=== PATIENT | female | born 1965 | race Caucasian/White ===

== ENCOUNTER → 2017-03-29 | Outpatient (CLI) | payer OTHER ==
[2017-03-29 08:44] LABS: AUTOMATED NEUTROPHIL # 3.7 TH/MM3 (1.8-7.7); BASOPHIL % 0.5 % (0.0-2.0); EOSINOPHIL # 0.3 TH/MM3 (0-0.4); EOSINOPHIL % 4.6 % (0.0-4.0); HEMATOCRIT 42.2 % (35.0-46.0); HEMO FLAGS DIFF FINAL; LYMPH % 28.4 % (9.0-44.0); LYMPHOCYTE # 1.8 TH/MM3 (1.0-4.8); MEAN CELL VOLUME 88.3 FL (80.0-100.0); MEAN CORPUSCULAR HEMOGLOBIN 29.7 PG (27.0-34.0); MEAN CORPUSCULAR HGB CONC 33.7 % (32.0-36.0); MONO % 8.6 % (0.0-8.0); NEUT % 57.9 % (16.0-70.0); PLATELET COUNT 283 TH/MM3 (150-450); RED BLOOD COUNT 4.78 MIL/MM3 (4.00-5.30); RED CELL DISTRIBUTION WIDTH 13.3 % (11.6-17.2); WHITE BLOOD COUNT 6.4 TH/MM3 (4.0-11.0)
[2017-03-29 09:07] LABS: ALT (GPT) 16 U/L (10-53); AST (GOT) 11 U/L (15-37); BICARBONATE 29.7 MEQ/L (21.0-32.0); BLOOD UREA NITROGEN 21 MG/DL (7-18); GLOMERULAR FILTRATION RATE 106 ML/MIN (>89); GLUCOSE,FASTING 109 MG/DL (74-99)
[2017-03-29 09:08] LABS: ANION GAP 5 MEQ/L (5-15); CHLORIDE 103 MEQ/L (98-107); SODIUM (NA) 138 MEQ/L (136-145)
[2017-03-29 09:32] LABS: ALKALINE PHOSPHATASE 67 U/L (45-117); LDL CHOLESTEROL 160 MG/DL (0-99); TOTAL BILIRUBIN ADULT 0.4 MG/DL (0.2-1.0)
[2017-03-29 10:19] LABS: RHEUMATOID FACTOR TRIGGER LESS THAN 10.0 IU/ML (0.0-14.9)
[2017-03-29 10:35] LABS: HEMOGLOBIN A1a 0.9 %; HEMOGLOBIN A1b 1.8 %; HEMOGLOBIN Ao 84.9 %; HEMOGLOBIN LA1C 2.2 %
[2017-03-29 10:53] LABS: WESTERGREN SEDIMENTATION RATE 10 mm/hr (0-30)
[2017-03-30 11:27] LABS: ANA SCREEN NEG (NEG)
== END ==
LOC: CLAB 07:59
PROVIDERS: ATTEND Neuromusculoskeletal Medicine & OMM
DX: M79.1 Myalgia (principal); Z11.59 Encounter for screening for other viral diseases; Z13.220 Encounter for screening for lipoid disorders; Z13.0 Encounter for screening for diseases of the blood and blood-forming organs and certain disorders involving the immune mechanism; Z13.1 Encounter for screening for diabetes mellitus
CPT/HCPCS: 36415; 80053; 80061; 82607; 83036; 85025; 85652; 86038; 86140; 86430; 86803

== ENCOUNTER → 2017-05-30 | Outpatient (CLI) | payer OTHER ==
[2017-05-30 16:07] LABS: AUTOMATED NEUTROPHIL # 6.2 TH/MM3 (1.8-7.7); BASOPHIL % 0.4 % (0.0-2.0); EOSINOPHIL # 0.3 TH/MM3 (0-0.4); HEMATOCRIT 41.5 % (35.0-46.0); HEMO FLAGS DIFF FINAL; LYMPH % 22.7 % (9.0-44.0); LYMPHOCYTE # 2.1 TH/MM3 (1.0-4.8); MEAN CELL VOLUME 88.8 FL (80.0-100.0); MEAN CORPUSCULAR HEMOGLOBIN 30.3 PG (27.0-34.0); MEAN CORPUSCULAR HGB CONC 34.2 % (32.0-36.0); MONO % 6.2 % (0.0-8.0); NEUT % 67.7 % (16.0-70.0); PLATELET COUNT 320 TH/MM3 (150-450); RED BLOOD COUNT 4.67 MIL/MM3 (4.00-5.30); RED CELL DISTRIBUTION WIDTH 13.7 % (11.6-17.2); WHITE BLOOD COUNT 9.1 TH/MM3 (4.0-11.0)
[2017-05-30 16:30] LABS: ALT (GPT) 19 U/L (10-53); ANION GAP 8 MEQ/L (5-15); AST (GOT) 13 U/L (15-37); BICARBONATE 26.2 MEQ/L (21.0-32.0); BLOOD UREA NITROGEN 14 MG/DL (7-18); CHLORIDE 103 MEQ/L (98-107); GLOMERULAR FILTRATION RATE 82 ML/MIN (>89); GLUCOSE,FASTING 111 MG/DL (74-99); POTASSIUM 3.2 MEQ/L (3.5-5.1); RHEUMATOID FACTOR TRIGGER LESS THAN 10.0 IU/ML (0.0-14.9); SODIUM (NA) 137 MEQ/L (136-145)
[2017-05-30 16:33] LABS: ALKALINE PHOSPHATASE 66 U/L (45-117); TOTAL BILIRUBIN ADULT 0.4 MG/DL (0.2-1.0)
[2017-05-30 16:35] LABS: WESTERGREN SEDIMENTATION RATE 8 mm/hr (0-30)
[2017-05-31 07:26] LABS: BACTERIA, URINE RARE /hpf; BLOOD, URINE NEG (NEG); GLUCOSE,URINE NEG (NEG); KETONE, URINE NEG (NEG); MUCUS URINE FEW /lpf (OCC); NITRITE,URINE NEG (NEG); SQUAMOUS EPITHELIAL CELL URINE 3 /hpf (0-5); URINE COLOR YELLOW (YELLW/STRAW)
[2017-05-31 10:25] LABS: HEPATITIS B SURFACE ANTIBODY 0 mIU/mL
[2017-06-01 17:38] LABS: ANA SCREEN NEG (NEG)
== END ==
LOC: CLAB 15:14
DX: M19.90 Unspecified osteoarthritis, unspecified site (principal)
CPT/HCPCS: 36415; 80053; 81001; 85025; 85652; 86038; 86140; 86200; 86317; 86430; 86803; 87340

== ENCOUNTER → 2017-09-06 | Outpatient (CLI) | payer OTHER | LOC: CLAB 09:26 | DX: I10 Essential (primary) hypertension (principal) | CPT/HCPCS: 36415; 84443 ==

== ENCOUNTER 2018-06-10 07:16 | Observation (INO) ==
[2018-06-10] MEDS ORDERED: Sodium Chlor 0.9% Inj 500 ML IV.CONT ONE (08:30)
[2018-06-10] MEDS ORDERED: Chlorhexidine Gluconate 2% 1 Pack (2 Cloths) TOPICAL ONE (08:30)
[2018-06-10] MEDS ORDERED: Metoprolol Tartrate 25 MG Tablet PO ONE (08:30)
[2018-06-10] MEDS ORDERED: Heparin - SQ 10,000 UNITS/ML Vial SQ SCH (08:30)
[2018-06-10] MEDS ORDERED: Sugammadex Inj 200 MG/2 ML Vial IV.PUSH ONE (08:46)
[2018-06-10] MEDS ORDERED: Lidocaine PF 1% Inj 5 ML Syringe OTHER ONE (09:50)
[2018-06-10] MEDS ORDERED: Ketorolac Inj 30 MG/ML (IVP) Vial IV.PUSH ONE (09:50)
[2018-06-10] MEDS ORDERED: hydrALAZINE HCl Inj 20 MG/ML Vial IV.PUSH ONE (09:50)
[2018-06-10] MEDS ORDERED: Glycopyrrolate Inj 1 MG/5 ML Syringe IV.PUSH ONE (09:50)
[2018-06-10] MEDS ORDERED: Esmolol Bolus Inj 100 MG/10 ML Vial IV.PUSH ONE (09:50)
[2018-06-10] MEDS ORDERED: Neostigmine Inj 5 MG/5 ML Syringe IV.PUSH ONE (09:50)
[2018-06-10] MEDS ORDERED: Normosol-R pH 7.4 Inj 1,000 ML IV.CONT ONE (09:50)
[2018-06-10] MEDS ORDERED: Lidocaine 1%/Epinephrine 1:100,000 Inj 50 ML Vial INFILTRATN ONE ×6 (10:14→14:00)
[2018-06-10] MEDS ORDERED: LORazepam 0.5 MG Tablet PO PRN (12:52)
[2018-06-10] MEDS ORDERED: fentaNYL Citrate Inj 100 MCG/2 ML Ampul ONE (12:55)
[2018-06-10] MEDS ORDERED: *Meperidine Inj 25 MG/ML Vial PERIprocedural Use ONLY ONE (12:58)
[2018-06-10] MEDS ORDERED: KCL 20 mEq/D5W/NaCl 0.45% Inj 1,000 ML ONE (13:11)
[2018-06-10] MEDS: KCL 20 mEq/D5W/NaCl 0.45% Inj 1,000 ML IV.CONT SCH ×2 (13:44→23:35)
[2018-06-10] MEDS ORDERED: *morphine SULFATE 4 MG/ML PERIprocedure ONLY ONE ×3 (14:21→17:26)
[2018-06-10] MEDS: Ketorolac Inj 30 MG/ML (IVP) Vial IV.PUSH SCH (18:00)
[2018-06-10] MEDS ORDERED: Ketorolac Inj 30 MG/ML (IVP) Vial IV.PUSH SCH (18:00)
[2018-06-10] MEDS: Metoprolol Tartrate 50 MG Tablet PO SCH (20:16)
[2018-06-10] MEDS: Gabapentin 300 MG Capsule PO SCH (20:22)
[2018-06-10 21:27] VITALS: O2SAT 97
[2018-06-11] MEDS: Ketorolac Inj 30 MG/ML (IVP) Vial IV.PUSH SCH ×2 (00:46→05:52)
[2018-06-11 06:09] LABS: Anion Gap 9 meq/L (5-15); Blood Urea Nitrogen 11 mg/dL (7-18); Carbon Dioxide 22.6 meq/L (21.0-32.0); Chloride 107 meq/L (98-107); Glomerular Filtration Rate Greater Than 89 mL/min (>89); Glucose,Random 109 mg/dL (74-106); Potassium 3.4 meq/L (3.5-5.1); Sodium 139 meq/L (136-145)
[2018-06-11 06:46] LABS: Baso % (Auto) 0.3 % (0.0-2.0); Eos % (Auto) 0.2 % (0.0-4.0); Hematocrit 38.3 % (35.0-46.0); Hemoglobin 12.5 gm/dL (11.6-15.3); Lymph # (Auto) 1.6 th/mm3 (1.0-4.8); Lymph % (Auto) 13.9 % (9.0-44.0); Mean Corpuscular HGB Conc 32.7 % (32.0-36.0); Mean Corpuscular Hemoglobin 29.7 pg (27.0-34.0); Mean Corpuscular Volume 90.6 fL (80.0-100.0); Mean Platelet Volume 7.9 fL (7.0-11.0); Mono # (Auto) 1.1 th/mm3 (0.0-0.9); Mono % (Auto) 9.3 % (0.0-8.0); Neut # (Auto) 8.9 th/mm3 (1.8-7.7); Neut % (Auto) 76.3 % (16.0-70.0); Platelet Count 267 th/mm3 (150-450); Red Blood Count 4.23 mil/mm3 (4.00-5.30); Red Cell Distribution Width 13.7 % (11.6-17.2); White Blood Count 11.6 th/mm3 (4.0-11.0)
[2018-06-11] MEDS: Gabapentin 300 MG Capsule PO SCH (08:15)
[2018-06-11] MEDS: Metoprolol Tartrate 50 MG Tablet PO SCH (08:17)
[2018-06-11 08:22] VITALS: BP 116/65; PULSE 82; RESP 20; TEMP 98.3
[2018-06-11] MEDS: KCL 20 mEq/D5W/NaCl 0.45% Inj 1,000 ML IV.CONT SCH (08:36)
[2018-06-11] MEDS ORDERED: Escitalopram 10 MG Tablet PO SCH (09:00)
--- NOTE | 2018-06-11 10:37 | MP ---
cc: Vidhya Boswell MD, Savitha MD DATE OF OPERATION: 06/10/2018 DATE OF PROCEDURE: 06/10/2015. PREOPERATIVE DIAGNOSIS: Left adnexal mass. POSTOPERATIVE DIAGNOSIS: Retroperitoneal para sigmoid colonic mass. PROCEDURE PERFORMED: Robotic-assisted laparoscopic hysterectomy, bilateral salpingo-oophorectomy. 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 ANESTHESIA: General endotracheal anesthesia. ESTIMATED BLOOD LOSS: 75 mL URINE OUTPUT: 150 mL IV FLUIDS: 1100 mL INTRAOPERATIVE CONSULT: Dr. Fernie Smith, General Surgery. HISTORY AND INDICATIONS: A 53-year-old female undergoing evaluation for back pain, which showed some degenerative changes, some narrowed disk space disease, but also showed a 4 cm mass thought to be in the left adnexa, possibly left broad ligament. It was solid in appearance. She was counseled regarding options. She was in favor of definitive surgical evaluation. She was seen in the preoperative holding area where findings and plan of care are again discussed. Questions were asked and answered. She expressed good understanding. FINDINGS: Upon entry into the peritoneal cavity, in the resting position the left ovary was immediately adjacent to a mass that was not of ovarian origin. When the ovaries and uterus were elevated, it became clear that the uterus, tubes, and ovaries grossly appeared normal. What was seen; however, was a smooth walled solid fixed mass arising from the retroperitoneum in the left pelvis and arising from the pelvis on the left side in the presacral region and adjacent to the sigmoid colon. It was uncertain if the mass was arising from the colon or involving the colon, but seemed to be at least partially involving the mesentery and was immediately adjacent to the colon. Intraoperative consult with Dr. Fernie Smith to review these findings and we agreed that further evaluation of this mass from a diagnostic standpoint and counseling and treatment planning standpoint were necessary such that no surgical intervention would be undertaken today regarding this mass, but recommendations for colonoscopy, CAT scan and consultation with colorectal surgery. The remainder of the anatomy appeared normal. There were no peritoneal implants. There were no appreciably enlarged pelvic or periaortic lymph nodes. The uterus once removed was opened and grossly appeared normal. The adnexa grossly appeared normal. DESCRIPTION OF PROCEDURE: She was taken to the operating room and placed in dorsal lithotomy position, after general endotracheal anesthesia was administered. A timeout was undertaken. She was identified by site recognition and hospital ID bracelet and the proposed procedure was reviewed and confirmed. She was carefully positioned in padded Robert stirrups. Her arms were padded and secured to the sides. She was further secured to the operating table with egg crate padding and tape in a cross chest over the shoulder fashion. All sites noted to be properly aligned with no malalignment or pressure points. She was prepped and draped below the waist, placed in lithotomy position. The cervix grasped. Uterine cavity sounded. Cervix dilated. Standard VCare manipulator inserted and secured in usual fashion. Stein catheter placed in the bladder. She was returned to the low lithotomy position. Change of sterile gloves was undertaken. We completed draping in anticipation of laparoscopy and confirmed an orogastric tube was in the stomach on suction. With manual elevation of the abdominal wall a 5 mm cannula introduced into the left upper quadrant in an atraumatic fashion; carbon dioxide gas was insufflated. An 8 mm cannula placed in the right upper quadrant. She was placed in Trendelenburg and the anatomy was surveyed with findings as described above. A 12 mm cannula placed in the midline above the umbilicus and an 8 mm cannula placed in the left abdomen. The original 5 mm cannula exchanged for an [address] Fernie Smith was consulted intraoperative, who reviewed the findings on laparoscopic; showed him the findings on the anatomy. We discussed recommendations as outlined above. In keeping with her wishes to have a complete hysterectomy to remove both tubes and ovaries irrespective of the pathology and to prevent future problems, we moved forward with those objectives, realizing that the pelvic mass was not of gynecologic origin and would need separate further evaluation and attention. She was placed in Trendelenburg position. The small bowel was folded back on its mesenteric root. Three Ray-Brianna sponges were placed around the root of the small bowel mesentery. The robotic system was brought into the operative field and attached in the usual fashion. Monopolar scissors, fenestrated bipolar forceps and ProGrasp manipulators were placed in arms #1, 2, and 3 respectively and I took my place at the surgeon's console. The right round ligament was isolated, cauterized, transected. The anterior and posterior leaves of the broad ligament were opened. The right ureter was identified and the right infundibulopelvic ligament was isolated to the level of the pelvic brim was cauterized and transected. Posterior peritoneum opened along the right side of the uterus and cervix and the right vesicouterine peritoneum was dissected off the lower uterine segment and cervix. The right uterine vessels were skeletonized, cauterized and transected as were the cardinal, paracervical and uterosacral ligaments. Attention was directed toward the left side where the left round ligament was isolated, cauterized, and transected. The anterior and posterior leaves of the broad ligament were opened. The left ureter was identified, the left infundibulopelvic ligament was isolated. The intervening peritoneum was opened. The infundibulopelvic ligament was isolated to the level of the pelvic brim where it was cauterized and transected. The posterior peritoneum opened along the left side of the uterus and cervix and the left vesicouterine peritoneum dissected off the lower uterine segment and cervix. The left uterine vessels were skeletonized, cauterized as were the cardinal, paracervical and uterosacral ligaments. Circumferential colpotomy was performed, the cervix from the upper vagina and the specimen was withdrawn transvaginally which included uterus, cervix, tubes and ovaries. A pneumo-occluder balloon was placed in the vagina to maintain pneumoperitoneum. Instruments 1 and 3 exchanged for needle drivers as 0-Vicryl suture was introduced. The vaginal cuff was closed starting at the left corner; full-thickness closure, incorporating the edge of the uterosacral ligament, posterior peritoneum and tied via instrument tie. Counter-traction was held on a running continuous full-thickness closure across the vaginal cuff to the contralateral corner where it was similarly fixed, secured tied. The needle was cut and removed. The bladder was inspected and noted to be intact without defect. There was a good margin between the vaginal cuff suture line and the bladder. There was good peristalsis of ureters bilaterally. The pelvis was thoroughly irrigated. Small bleeders rendered hemostatic with bipolar cautery. It was felt that all reasonable surgical objectives had been completed and the robotic instruments were removed and the robotic system was disengaged from the operative field. I reentered the bedside under sterile condition. Each of the 3 Ray-Brianna sponges were removed; they were removed individually and inspected and noted to be removed in their entirety. Visual inspection of the peritoneal cavity revealed no remaining foreign objects and the preliminary counts were correct. The 12 mm fascial defect was closed with interrupted 0-Vicryl sutures using a needle fascial closure device. They were tied securely which rendered the fascia completely airtight and hemostatic. The remaining cannulas were withdrawn. Carbon dioxide gas was removed; 3-0 Vicryl subcutaneous, 3-0 Vicryl subcuticular and Steri-Strips were used to close these incisions. She was returned to dorsal lithotomy position. Pelvic exam confirmed the vaginal cuff was well-supported and hemostatic. There were no vaginal lacerations, but there was some generalized irritation to the vaginal mucosa with some mild oozing for which 1 gram of Tristan hemostatic powder was placed across the vaginal cuff and in the vaginal mucosa. There were no remaining foreign objects in the vagina. Final counts were correct. She was returned to dorsal supine position and was pending reversal of anesthesia, when I left the operating room to precede her to the postanesthesia care unit. MD ANAY Calvillo/jc , 08:33 AM , 08:48 AM
--- NOTE | 2018-06-11 12:45 | MD ---
cc: Vidhya Boswell MD, Savitha MD DATE OF DISCHARGE: 06/11/2018 DATE OF ADMISSION: 06/10/2018 DATE OF DISCHARGE: 06/11/2018. PROCEDURE: 06/10/2018: Robotic-assisted laparoscopic hysterectomy, bilateral salpingo-oophorectomy. PREOPERATIVE DIAGNOSIS: Left ovarian mass. POSTOPERATIVE DIAGNOSIS: Left-sided retroperitoneal para sigmoid colonic mass. HOSPITAL COURSE: She did well in her early postoperative period; remained hemodynamically stable, tolerated oral intake; Stein catheter removed pending voiding. Ins and outs are not completely recorded. LABORATORY DATA: H and H 12.5 and 38.3. Electrolytes: BUN and creatinine 11 and 0.56, potassium slightly low at 3.4. PHYSICAL EXAMINATION: VITAL SIGNS: Afebrile, pulse 70-79, respirations 18, blood pressure 104-120/61-75, O2 saturations greater than or equal to 97%. GENERAL: Alert and oriented x3, no acute distress. LUNGS: Clear. CARDIOVASCULAR: Regular rate and rhythm. ABDOMEN: Soft. Incision is clean and dry. GYNECOLOGICAL: No bleeding. EXTREMITIES: Nontender. ASSESSMENT: Postoperative day number 1; doing well in the early postoperative period. The findings at the time of surgery and the clarification that the pelvic mass is not of gynecologic origin. As per our previous discussion hysterectomy and bilateral salpingo-oophorectomy were performed; however, the mass will need further evaluation. It was felt that it may be associated with excess morbidity and we had not completely discussed options and provided consent. It is unclear if the mass to be resected will require rectosigmoid resection. She understands that we recommend a colonoscopy and I have placed a referral request to Dr. Rubi Jackson in colorectal surgery. We will also get an updated CAT scan and given the concern about a possible malignant neoplasm, we recommend a CAT scan of chest, abdomen and pelvis. Discussion ensued, questions were asked and answered. She expressed good understanding. We discussed again the activities and restrictions. Questions were asked and answered; she understands. PLAN: Anticipate discharge to home today. She is to contact our office to schedule a followup in 1-2 weeks. She is to resume prior medications. She has a prescription for Percocet and our office number is made available should you have any questions or problems between now and the time of scheduled followup. MD Sarahy Calvillo , 08:23 AM , 08:32 AM
== END 2018-06-11 10:43 | disposition home or self-care (01) ==
LOC: HSDI 07:16 → HSDC 07:16 → H1EA 17:58
PROVIDERS: ADMIT Obstetrics & Gynecology Gynecologic Oncology; ATTEND Obstetrics & Gynecology Gynecologic Oncology

== ENCOUNTER 2018-08-21 05:54 | Inpatient (IN) ==
[2018-08-21] MEDS ORDERED: Chlorhexidine Gluconate 2% 1 Pack (2 Cloths) TOPICAL ONE (06:28)
[2018-08-21] MEDS ORDERED: Metoprolol Tartrate 25 MG Tablet PO ONE (06:28)
[2018-08-21] MEDS ORDERED: ceFAZolin 2 GM Premix Inj 2 GM/50 ML PIGGYBACK IV.SIG SCH (07:00)
[2018-08-21] MEDS ORDERED: Sodium Chlor 0.9% Inj 500 ML IV.SIG SCH (07:00)
[2018-08-21 08:32] LABS: Baso % (Auto) 0.5 % (0.0-2.0); Eos # (Auto) 0.2 th/mm3 (0.0-0.4); Eos % (Auto) 2.4 % (0.0-4.0); Hematocrit 38.1 % (35.0-46.0); Hemoglobin 13.3 gm/dL (11.6-15.3); Lymph # (Auto) 1.4 th/mm3 (1.0-4.8); Lymph % (Auto) 17.1 % (9.0-44.0); Mean Corpuscular HGB Conc 34.8 % (32.0-36.0); Mean Corpuscular Hemoglobin 31.2 pg (27.0-34.0); Mean Corpuscular Volume 89.6 fL (80.0-100.0); Mean Platelet Volume 7.9 fL (7.0-11.0); Mono # (Auto) 0.5 th/mm3 (0.0-0.9); Neut # (Auto) 5.9 th/mm3 (1.8-7.7); Platelet Count 264 th/mm3 (150-450); Red Blood Count 4.26 mil/mm3 (4.00-5.30); Red Cell Distribution Width 13.5 % (11.6-17.2)
[2018-08-21 08:50] LABS: Anion Gap 5 meq/L (5-15); Blood Urea Nitrogen 19 mg/dL (7-18); Calcium 8.7 mg/dL (8.5-10.1); Carbon Dioxide 29.2 meq/L (21.0-32.0); Chloride 108 meq/L (98-107); Glomerular Filtration Rate Greater Than 89 mL/min (>89); Glucose,Random 121 mg/dL (74-106); Potassium 3.7 meq/L (3.5-5.1); Sodium 142 meq/L (136-145)
[2018-08-21] MEDS ORDERED: Bupivacaine/Epinephrine Inj 0.25% 50 ML Vial ONE (10:09)
[2018-08-21] MEDS ORDERED: Bupivacaine Liposomal PF 1.3% Inj 20 ML Vial ONE ×2 (10:33→10:34)
[2018-08-21] MEDS ORDERED: fentaNYL Citrate Inj 100 MCG/2 ML Ampul ONE (11:09)
[2018-08-21] MEDS ORDERED: Post-op Orders (for Pharmacy) OTHER ONE (11:11)
[2018-08-21] MEDS ORDERED: Morphine Inj 4 MG/ML Vial IV.PUSH PRN (11:11)
[2018-08-21] MEDS ORDERED: Promethazine 25 MG Supp RECTAL PRN (11:11)
[2018-08-21] MEDS ORDERED: Benzocaine 20% Oral Spray 60 ML Can OROPHARYNG PRN (11:11)
[2018-08-21] MEDS ORDERED: Morphine Sulfate Inj 2 MG/ML Vial IV.PUSH PRN (11:11)
[2018-08-21] MEDS ORDERED: Naloxone Inj 0.4 MG/ML Vial IV.PUSH PRN (11:11)
--- NOTE | 2018-08-21 12:01 | MP ---
cc: Fuad Marcial MD DATE OF OPERATION: 08/21/2018 PREOPERATIVE COMPLAINT: Retroperitoneal presacral soft tissue mass (5 cm in greatest length). POSTOPERATIVE COMPLAINT: Retroperitoneal presacral soft tissue mass (5 cm in greatest length). PROCEDURES PERFORMED: 1. Open resection of retroperitoneal soft tissue mass 5 cm in the presacral area. 2. Appendectomy. 3. Placement of radiologic markers. 4. Placement of antiadhesion barrier (seprafilm) ATTENDING SURGEON: Fuad Marcial MD FAITH DOCTOR: Staff. ANESTHESIA: General and regional TAP block. COMPLICATIONS: None. BLOOD LOSS: 25 mL. FINDINGS: A 5 x 4 x 4 cm irregular, rubbery, fatty, well-defined soft tissue mass in the presacral area just medial to the left internal iliac artery. Intraoperative consultation shows likely benign tumor. INDICATIONS FOR PROCEDURE: The patient is a 53-year-old female, who developed increasing pelvic pain. She underwent evaluation including imaging, which showed a 5 cm tumor that was thought to involve the left adnexa. She underwent robotic hysterectomy and bilateral salpingo-oophorectomy by Dr. Vidhya Boswell. During the operation, there were no mass retrieved, and further imaging did show that this was likely a part of the retroperitoneum. The patient was referred to surgical oncology and after discussion with the patient and her about the risks, benefits, and alternatives to resection of soft tissue mass, the patient agreed to undergo the procedure. DESCRIPTION OF PROCEDURE: The patient was taken to the operating room and placed in the supine position, and placed under general endotracheal anesthesia. The patient's abdomen was prepped and draped in a sterile fashion. Timeout was performed. A lower midline incision was made from above the pubis to below the umbilicus with a 10 blade scalpel. Bovie electrocautery was used to dissect through subcutaneous tissue to open the fascia at the full length of our incision. We placed an Victorino wound protector. We placed a Bookwalter retractor. We did some minimal lysis of adhesions due to previous surgery. There was noted to be some inflammation of the sigmoid colon that appeared to be the retroperitoneal dissection for the left ovarian pedicle that stuck down. This was taken down with a right angle and the Bovie electrocautery. The colon was carefully inspected, and it appeared to be completely intact. There was a small serosal tear on the sigmoid colon. We did repair this with a 3-0 silk suture. I did some lysis of adhesions from the small bowel to the vaginal cuff, which was very minimal, and filmy, and took down the appendix, which was densely adhered down to the vaginal cuff and the right pelvic sidewall. In the process of having this becoming somewhat traumatized by the dissection, we elected it was in the patient's best interest to go ahead and perform appendectomy, due to the possible injury to the appendix causing a problem for the patient. This was performed later in the case. We then continued our dissection, reopened the retroperitoneum just medial to the ureter, and the internal iliac artery, and exposed both of the structures well. We continued this, and we mobilized the colon and the rectosigmoid junction to the patient's right. This exposed the mass completely, and it was a rather filmy dissection to expose the anterior portion of the mesh. There were some small vessels, and filmy attachments to the sacrum, but no invasion into the sacrum. The mass was fatty, rubbery, and well defined. I used the laparoscopic LigaSure to take down some small arterioles and veins that were perforating from this mass and to take it off of the sacrum completely. This mass was completely removed from the patient, marked and oriented, and sent for intraoperative consultation. This returned unlikely a malignancy or sarcoma. We did place some radiologic markers, 4 large clips at the medial, lateral, superior, and inferior aspects of the resection bed. Excellent hemostasis spontaneously. We placed some Surgicel in the area as well. We then turned our attention towards completion of the case. We did perform an appendectomy due to the trauma of the appendix and the previous dissection. We made a window at the base of the appendix with a right, angle and placed a 2-0 silk suture ligature on the appendiceal mesentery. I used the blue load on the AVINASH 55 linear stapler cutter to divide the base of the appendix distally into the tinea. Appendix was removed and passed off for permanent processing. I then turned attention towards closure. I closed the midline with #1 looped PDS suture. The skin was closed with candace. A HERVE dressing was applied. The patient tolerated the procedure well, and there were no apparent complications. All counts were correct. I was present and scrubbed for the entire operation. MD MAKEDA Aguilar/rae , 11:25 AM , 11:37 AM LEWIS
[2018-08-21] MEDS ORDERED: Enoxaparin Inj 40 MG/0.4 ML Syringe SQ ONE (13:00)
[2018-08-21] MEDS ORDERED: Zolpidem Tartrate 5 MG Tablet PO PRN (21:00)
--- NOTE | 2018-08-22 14:32 | P.PNGS ---
Subjective Interval history: Up to chair C/o LEFT leg numbness Physical Exam Vital signs: Vital Signs 08/21/18 16:00 08/21/18 20:00 08/22/18 00:00 Temperature 98.8 F 98.4 F 98.8 F Pulse Rate 81 78 86 Respiratory Rate 16 18 18 Blood Pressure 144/70 H 123/64 135/69 Pulse Oximetry 93 L 95 96 08/22/18 04:00 08/22/18 04:57 08/22/18 08:00 Temperature 98.2 F 98.2 F Pulse Rate 74 76 Respiratory Rate 18 20 19 Blood Pressure 135/67 145/78 H Pulse Oximetry 95 94 L 08/22/18 10:26 08/22/18 12:00 Temperature 98.4 F Pulse Rate 76 Respiratory Rate 18 18 Blood Pressure 135/83 Pulse Oximetry 96 Intake & Output 08/21/18 08/22/18 08/22/18 18:59 06:59 18:59 Intake Total 1400 / 1400 1920 / 1920 990 / 990 Output Total 500 / 500 250 / 250 1300 / 1300 Balance 900 / 900 1670 / 1670 -310 / -310 Weight 72.4 kg 72.4 kg Intake: IV 100 / 100 1800 / 1800 750 / 750 LR 1000 mL Inj 1,000 ML @ 100 1100 / 1100 500 / 500 mls/hr IV.CONT .Q10H E[facility]NEST Rx#: [id number] Ofirmev Inj 1,000 mg In 100 ml 100 / 100 200 / 200 100 / 100 @ 400 mls/hr IV.SIG Q6H [facility] Rx# :[id number] LR 1000 mL Inj 500 ML @ 500 mls 500 / 500 /hr IV.SIG .Q1H ONE Rx#: [id number] Oral 120 / 120 240 / 240 Anesthesia Amount 1300 / 1300 Output: Estimated Blood Loss 100 / 100 Urine Amount (Catheter) 400 / 400 250 / 250 1300 / 1300 Indwelling Urethral Catheter 400 / 400 250 / 250 1300 / 1300 Narrative: Alert and awake Abd: soft; HERVE in place; soft; minimally tender equal strength in BLE - Urinary Catheter Management Indwelling Urethral Catheter Cath placed during this visit: yes, but has since been removed by the nurse Reason for continuing: Decision to DC catheter Removal date: 08/22/18 Removal time: 06:15 Results - Labs 08/21/18 07:55 08/21/18 07:55 Assessment and Plan - Plan 53 year old female POD1 open resection of retroperitoneal soft tissue mass; appendectomy -Advance to regular diet -Continue Ofirmev -DC IVF -Consult PT -Hopefully home in the next 24-48 hours - Attending Attestation The exam, history, and the medical decision-making described in the above note were completed with the assistance of the mid-level provider. I reviewed and agree with the findings presented. I attest that I had a [id number] encounter with the patient on the same day, and personally performed and documented my assessment and findings in the medical record. s/p sacral soft tissue mass resection pain controlled left lower extremity neuro symptoms, no significant deficits on PE PT consulted for eval and treat
[2018-08-23 08:22] VITALS: RESP 16; O2SAT 97
[2018-08-23 13:10] VITALS: BP 142/83; PULSE 90; TEMP 97.8
--- NOTE | 2018-08-23 17:26 | P.DS ---
<Licha Gomez - Last Filed: 08/26/18 13:56> Date of admission: 08/21/18 05:54 Primary care physician: Barbi Gallego DO Attending physician on discharge: Fuad Marcial Anticipated date of discharge: 08/23/18 Brief History from admission: 53 year old female POD2 open resection of retroperitoneal soft tissue mass; appendectomy DS: Medications - Discharge Medications Prescriptions: hydrocodone-acetaminophen 1 tab PO Q4H PRN #20 tab PRN Reason: acute post op pain exception DS: Summary Hospital Course: This is a 53 year old female POD2 open resection of retroperitoneal soft tissue mass; appendectomy. The patient's diet was advanced as tolerated. The patient' s pain was controlled using oral pain medication. She will follow up in the office. - Time Spent with Patient Total time spent providing and/or coordinating discharge services: Less than 30 minutes - Quality: VTE Deep Vein Thrombosis/Pulmonary Embolism Present on Admission: No Exam Vital signs: Vital Signs 08/22/18 20:00 08/23/18 00:00 08/23/18 08:00 Temperature 99.2 F 98.5 F 98.2 F Pulse Rate 88 86 87 Respiratory Rate 18 18 16 Blood Pressure 147/80 H 143/79 H 164/82 H Pulse Oximetry 96 96 97 08/23/18 12:00 Temperature 97.8 F Pulse Rate 90 Respiratory Rate 16 Blood Pressure 142/83 H Pulse Oximetry 97 Intake & Output 08/22/18 08/23/18 08/23/18 18:59 06:59 18:59 Intake Total 2090 / 2090 340 / 340 100 / 100 Output Total 1300 / 1300 650 / 650 Balance 790 / 790 -310 / -310 100 / 100 Weight 69.5 kg Intake: IV 1850 / 1850 100 / 100 100 / 100 LR 1000 mL Inj 1,000 ML @ 100 500 / 500 mls/hr IV.CONT .Q10H [facility] Rx#: [id number] Ofirmev Inj 1,000 mg In 100 ml 200 / 200 100 / 100 100 / 100 @ 400 mls/hr IV.SIG Q8H [facility] Rx# :[id number] LR 1000 mL Inj 1,000 ML @ 30 1000 / 1000 mls/hr IV.SIG .Q24H E[facility]NEST Rx#: [id number] Oral 240 / 240 240 / 240 Output: Urine 650 / 650 Urine Amount (Catheter) 1300 / 1300 Indwelling Urethral Catheter 1300 / 1300 Narrative: Alert and awake Abd: soft; minimally tender Results Procedures completed during hospitalization: 53 year old female POD2 open resection of retroperitoneal soft tissue mass; appendectomy Completed studies during hospitalization: Pending at discharge 08/21/18 10:05 Surgical [PTH] Routine <Fuad Marcial - Last Filed: 08/28/18 09:44> Date of admission: 08/21/18 05:54 Primary care physician: Barbi Gallego DO DS: Summary - Time Spent with Patient Total time spent providing and/or coordinating discharge services: Results Completed studies during hospitalization: Pending at discharge 08/21/18 10:05 Surgical [PTH] Routine Discharge Plan - Discharge Order Discharge Orders: Discharge Order (Routine); Ordered 08/23/18 Ordered By: Fuad Marcial - Discharge Details Anticipated Discharge Date: 08/22/18 Discharge Comment: rx on chart - Physicians Team Primary Care Provider: Barbi Gallego Attending Provider: Fuad Marcial - Rxs /Orders / Referrals /Forms Prescriptions: New hydrocodone-acetaminophen 5-325 mg Tablet 1 tab PO Q4H PRN (Reason: acute post op pain exception ) Qty: 20 RF: 0 Continue alendronate [Fosamax] 70 mg Tablet 70 mg PO QWEEK baclofen 20 mg Tablet 20 mg PO BID calcium carbonate-vitamin D3 [Calcium 600 + D(3)] 600 mg(1,500mg) -400 unit Tablet 1 tab PO DAILY cholecalciferol (vitamin D3) [Vitamin D3] 2,000 unit Tablet 2,000 unit PO DAILY escitalopram oxalate 5 mg Tablet 5 mg PO DAILY gabapentin 300 mg Capsule 300 mg PO BID hydrochlorothiazide 25 mg Tablet 25 mg PO DAILY levocetirizine [Xyzal] 5 mg Tablet 5 mg PO DAILY PRN (Reason: Congestion) meloxicam 15 mg Tablet 15 mg PO DAILY metoprolol tartrate 50 mg Tablet 50 mg PO BID multivit with min-folic acid [Adult One Daily Multivitamin] 0.4 mg Tablet 1 tab PO DAILY Discontinued oxycodone-acetaminophen 5-325 mg Tablet 1 tab PO Q4H PRN (Reason: Pain) Qty: 30 RF: 0 Referrals: Fuad Marcial MD [Physician] - See Instructions (Appt set for SundaySep 02 at 3:40PM ) Barbi Gallego DO [Primary Care Provider] - See Instructions - Discharge Instructions Patient Printed Instructions: Hydrocodone/Acetaminophen (By mouth), Exploratory Laparoscopy (DC), Exploratory Laparotomy (DC), Abdominal Binder (DC)
== END 2018-08-23 15:47 | disposition home or self-care (01) | DRG 517 ==
LOC: HSDI 05:54 → N07 12:36
PROVIDERS: ADMIT Surgery; ATTEND Surgery
CPT/HCPCS: 80048; 85025; 88304; 88305; 88307; 88331; 88341; 88342; 88343; 97162; C1765; C9290; G0461; G0462; J0131; J0690; J2250; J2405; J3010; J7120